=== PATIENT | male | born 1980 | race Caucasian/White ===

== ENCOUNTER 2018-01-26 12:03 | Emergency (ER) | payer OTHER ==
[2018-01-26] MEDS ORDERED: Ketorolac INJ* 30 MG/ML 1 ML VIAL IV PUSH ONE (12:31)
[2018-01-26] MEDS ORDERED: Dexamethasone IV* 4 MG/ML 1 ML (4 MG) IV SLOW PU ONE (12:32)
[2018-01-26] MEDS ORDERED: Methocarbamol* 100 MG/ML 10 ML VIAL IV ONE (12:32)
[2018-01-26] MEDS ORDERED: oxyCODONE TAB* 5 MG TAB PO ONE (12:33)
--- NOTE | 2018-01-26 12:39 | ED ---
Back Pain - HPI Summary HPI Summary: 37-year-old male presents with back pain for the past day. He states he rolled over in bed and felt pain. He states been gradually getting worse. He states that it goes around his inner thigh down to his knee. He denies any numbness or tingling. No weakness. He states the pain is extreme. He does have a history of back pain due to spinal fusion many years ago but has not had any exacerbations of pain since surgery. This is in a different location than the previous pain. He denies any urinary symptoms. No fevers. No history of IV drug use. He denies any loss of bowel or bladder. No saddle anesthesia. No bowel pain. Has not taking anything for pain today. Is an extreme amount of pain. Pain is better when he ambulates. Has history of sciatica but states this feels different. no medical conditions. - History of Current Complaint Chief Complaint: EDBackInjuryPain Stated Complaint: BACK/LEG PAIN Time Seen by Provider: 01/26/18 12:13 Pain Intensity: 10 - Allergies/Home Medications Allergies/Adverse Reactions: Allergies Allergy/AdvReac Type Severity Reaction Status Date / Time No Known Allergies Allergy Verified 01/26/18 12:10 PMH/Surg Hx/FS Hx/Imm Hx Endocrine/Hematology History: Denies: Hx Anticoagulant Therapy Cardiovascular History: Denies: Hx Hypertension Infectious Disease History: No Infectious Disease History: Denies: Traveled Outside the [place] in Last 30 Days - Family History Known Family History: Positive: Hypertension - Social History Alcohol Use: Occasionally Substance Use Type: Reports: None Smoking Status (MU): Current Some Day Smoker Review of Systems Negative: Fever Negative: Chest Pain Negative: Shortness Of Breath Positive: Myalgia - back pain All Other Systems Reviewed And Are Negative: Yes Physical Exam Triage Information Reviewed: Yes Vital Signs On Initial Exam: Initial Vitals Temp Pulse Resp BP Pulse Ox 97.3 F 78 18 141/66 98 01/26/18 12:06 01/26/18 12:06 01/26/18 12:06 01/26/18 12:06 01/26/18 12:06 Vital Signs Reviewed: Yes Appearance: Positive: Pain Distress Skin: Positive: Warm, Dry Head/Face: Positive: Normal Head/Face Inspection Eyes: Positive: Normal, Conjunctiva Clear ENT: Positive: Pharynx normal Respiratory/Lung Sounds: Positive: Clear to Auscultation, Breath Sounds Present Cardiovascular: Positive: Normal, RRR Musculoskeletal: Positive: Limited @ - back, Other - right side of back, tenderness over SI joint, pos SLR right, good pulses, sensation grossly intact Neurological: Positive: Normal Gait, Other - dec patella reflex at baseline. Negative: Babinski Bilateral - neg Psychiatric: Positive: Normal Diagnostics - Vital Signs Vital Signs Temp Pulse Resp BP Pulse Ox 01/26/18 12:06 97.3 F 78 18 141/66 98 - Laboratory Lab Statement: Any lab studies that have been ordered have been reviewed, and results considered in the medical decision making process. - CT back CT Interpretation: Positive (See Comments) - right sided disc protrusion at L2- L3 CT Interpretation Completed By: Radiologist Re-Evaluation - Re-Evaluation First Eval Re-Evaluation Time: 14:24 Change: Unchanged Comment: pain is unchange, ordered morphine Second Eval Re-Evaluation Time: 14:35 Change: Improved Comment: feeling a bit better Third Eval Re-Evaluation Time: 15:17 Change: Improved Comment: feeling ready to go Back Pain Course/Dx - Course Course Of Treatment: 37-year-old male presents with back pain for the past day. He states he rolled over in bed and felt pain. He states been gradually getting worse. He states that it goes around his inner thigh down to his knee. He denies any numbness or tingling. No weakness. He states the pain is extreme. He does have a history of back pain due to spinal fusion many years ago but has not had any exacerbations of pain since surgery. This is in a different location than the previous pain. He denies any urinary symptoms. No fevers. No history of IV drug use. He denies any loss of bowel or bladder. No saddle anesthesia. No bowel pain. Has not taking anything for pain today. Is an extreme amount of pain. Pain is better when he ambulates. Has history of sciatica but states this feels different. no medical conditions. On exam has tenderness right side of back. Positive straight leg raise. Tenderness SI joint. Neurovascularly intact. Has decreased patella reflex at baseline due to surgery. Gave pain medication and going better. will discharge with steriod and muscle relaxer. patient understand and agrees with plan. - Diagnoses Differential Diagnosis/HQI/PQRI: Positive: Herniated Disc, Strain, Sprain Provider Diagnoses: Back pain Discharge - Sign-Out/Discharge Documenting (check all that apply): Patient Departure - Discharge Plan Condition: Good Disposition: HOME Prescriptions: Cyclobenzaprine TAB* [Flexeril 10 MG TAB*] 10 mg PO TID PRN #21 tab PRN Reason: Pain methylPREDNISolone [Medrol Dosepak 4 MG*] 4 mg PO .SEE KIKI INSTRUCTION #1 packet oxyCODONE TAB* [Roxycodone TAB 5 mg*] 5 mg PO Q6H PRN #20 tab MDD 4 PRN Reason: Pain Patient Education Materials: Back Pain (ED) Referrals: [facility] [Outside] [facility] [Outside] Additional Instructions: Follow directions on package for Medrol pack Take muscle relaxers three times a day Use ibuprofen or Tylenol for pain every 6 hours, use oxycodone for break through pain every 6 hours ice/heat area, move as much as possible Establish care with primary, can use [facility] until can get primary Follow up with neurosurgery Return to ED if develop any new or worsening symptoms - Billing Disposition and Condition Condition: GOOD Disposition: Home
[2018-01-26] MEDS ORDERED: Morphine INJ** 4 MG/ML 1 ML CARPUJECT IV ONE ×2 (14:05→14:58)
[2018-01-26] MEDS ORDERED: Morphine INJ* 2 MG/ML 1 ML SYRINGE (TWO MG - NEW SYRINGE VERSION) ONE (14:09)
[2018-01-26] MEDS: Morphine INJ* 2 MG/ML 1 ML SYRINGE (TWO MG - NEW SYRINGE VERSION) IV ONE ×2 (14:10→15:03)
[2018-01-26 15:13] VITALS: BP 131/92
[2018-01-26 15:34] LABS: Urine Appearance Clear; Urine Blood Negative (Negative); Urine Color Yellow; Urine Ketones Negative (Negative); Urine Protein Negative (Negative); Urine Specific Gravity 1.018 (1.010-1.030); Urine Urobilinogen Negative (Negative)
--- NOTE | 2018-01-26 16:34 | RAD ---
HISTORY: RIGHT SIDED BACK PAIN, SPINAL FUSION 2006 COMPARISONS: None TECHNIQUE: Multiple contiguous axial CT scans were obtained of the lumbar spine without intravenous contrast, with coronal and sagittal multiplanar reformations. FINDINGS: SPINAL CANAL: Evaluation of the central canal is limited on CT technique and by streak artifact from metallic hardware; however, there is no obvious canalicular mass or epidural hemorrhage. 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 VERTEBRAL BODIES: The patient is status post laminectomy spinal fusion. There are pedicle screws noted at L3, L4, and L5. There is no hardware failure or osteolysis. JOINTS: There is fusion across the facet joints at L3-L4, L4-L5, and L5-S1. There is facet osteoarthritis noted most pronounced on the right at L2-L3. MUSCULATURE: Unremarkable INTERVERTEBRAL DISCS: There is mild diffuse loss of intervertebral disc height throughout the spine. AXIAL IMAGES: T11-T12: There is no osseous neural foraminal narrowing of central canal stenosis. T12-L1: There is no osseous neural foraminal narrowing or central canal stenosis. L1-L2: There is no osseous neural foraminal narrowing or central canal stenosis. L2-L3: There is marginal osteophyte formation at the neural foramina with a right lateral recess disc protrusion measuring 0.4 cm in depth. There is ligamentous hypertrophy. There is right greater than left facet hypertrophy. There is moderate right neuroforaminal narrowing. There is mild narrowing of the central canal. L3-L4: A laminectomy defect is noted. There is no osseous neural foraminal narrowing or central canal stenosis. L4-L5: Laminectomy defect is noted. There is no osseous neural foraminal narrowing or central canal stenosis. L5-S1: There is marginal osteophyte formation at the left neural foramen. There is moderate left neuroforaminal narrowing. There is no osseous central canal stenosis. SOFT TISSUES: The visualized soft tissues of the abdomen are unremarkable. OTHER: None IMPRESSION: 1. STATUS POST LAMINECTOMY AND SPINAL FUSION. 2. SCOLIOSIS. 3. DEGENERATIVE DISC DISEASE AND OSTEOARTHRITIS. 4. THERE IS A RIGHT-SIDED DISC PROTRUSION AT L2-L3. 5. THERE IS MILD NARROWING OF CENTRAL CANAL AT L2-L3. 6. THERE IS MULTILEVEL NEUROFORAMINAL NARROWING DESCRIBED ABOVE.
== END 2018-01-26 15:47 | disposition home or self-care (01) ==
LOC: ED 12:03
DX: M51.26 Other intervertebral disc displacement, lumbar region (principal); M25.78 Osteophyte, vertebrae; M41.9 Scoliosis, unspecified; F17.200 Nicotine dependence, unspecified, uncomplicated; Z98.1 Arthrodesis status
CPT/HCPCS: 72131; 81003; 96374; 96375; 99282; A9270-GY; J1100; J1885; J2270; J2800